=== PATIENT | female | born 2000 | race Caucasian/White ===

== ENCOUNTER 2025-06-03 21:26 | Emergency (ER) | payer OTHER, SELFPAY ==
[2025-06-03 21:30] VITALS: BP 108/68
[2025-06-03 21:48] LABS: Hematocrit 35.4 % (37.0-47.0); Hemoglobin 12.2 g/dL (12.0-16.0); Mean Corp Hgb Conc. 34.5 g/dL (33.0-37.0); Mean Corpuscular Volume 86.1 fL (81.0-99.0); Platelet Count 300 10^3/uL (130-400); Red Cell Dist. Width 12.6 % (11.5-14.5)
[2025-06-03 22:42] LABS: Beta HCG Quantitative 13121.00 mIU/ml
== END 2025-06-03 23:45 ==
LOC: EMR 21:26
PROVIDERS: Emergency Medicine
DX: O99.891 Other specified diseases and conditions complicating pregnancy (principal); R10.9 Unspecified abdominal pain; Z3A.12 12 weeks gestation of pregnancy
CPT/HCPCS: 76801; 84702; 85027; 86850; 86900; 86901

== ENCOUNTER 2025-09-30 09:04 | Emergency (ER) | payer OTHER, SELFPAY ==
--- NOTE | 2025-09-30 09:07 | ED.GENMED ---
History of Present Illness
General
Chief Complaint: Dehydration Symptoms
Time Seen by Provider: 09/30/25 09:07
History of Present Illness
History of Present Illness:
FOCUSED PAST MEDICAL HISTORY
- Seizures, POTS, Alecia-Danlos
REVIEW OF OLD RECORDS
- The patient is been seen here in the past and was diagnosed with COVID a couple years ago
Note:
CHIEF COMPLAINT(S)
Nausea, Headache, Seizure risk due to dehydration from Hyperemesis Gravidarum
HISTORY OF PRESENT ILLNESS
The patient is a 24-year-old female who is currently seven weeks and presents to the emergency department with nausea and headache. She has a history of hyperemesis gravidarum and epilepsy. The patient reports that she has not been able to
take her seizure medication, Vimpat (lacosamide), for several weeks due to nausea and vomiting, which increases her risk of seizures when dehydrated. She typically uses Klonopin (clonazepam) as a rescue medication for seizures.
The patient attended a custody hearing at a courthouse today and began feeling unwell, prompting her visit to the emergency department. She indicates that she attempted to manage her symptoms with Zofran (ondansetron) at home but prefers intravenous
administration as it has been more effective in the past.
The current episode of nausea and vomiting has led to dehydration, and she reports a significant headache. She denies current abdominal pain when asked if palpation of the abdomen causes discomfort.
PAST MEDICAL AND SURIGICAL HISTORY
History of epilepsy.
MEDICATIONS
Vimpat (lacosamide) - Unable to take for weeks due to nausea.
Klonopin (clonazepam) - Rescue medication for seizures.
Zofran (ondansetron) - Used for nausea, prefers IV administration.
PHYSICAL EXAM
General: Alert, appears upset and somewhat uncomfortable
Skin: Warm, dry.
Head: Normocephalic, atraumatic.
Neck: Supple, trachea midline.
Eye Ears, nose, mouth and throat: Oral mucosa moist.
Cardiovascular: Normal peripheral perfusion, No edema.
Respiratory: Respirations are non-labored.
Gastrointestinal: Abdomen nondistended. Minimal diffuse abdominal tenderness
Back: Normal range of motion, Normal alignment.
Musculoskeletal: Normal range of motion, normal strength.
Neurological: Alert and oriented to person, place, time, and situation, No focal neurological deficit observed.
Psychiatric: Cooperative, appropriate, appears upset
PLAN
1. Administer intravenous fluids to address dehydration and prevent seizure risk.
2. Administer intravenous Zofran (ondansetron) to manage nausea.
3. Obtain urine sample and blood work to evaluate dehydration and other potential issues.
4. Provide Tylenol (acetaminophen) for the patient�s headache if needed however patient initially declines.
DIFFERENTIAL DIAGNOSIS
The Differential Diagnosis includes, in no particular order and is not limited to:
1. Hyperemesis Gravidarum
2. Dehydration
3. Migraine
4. Tension Headache
5. Epileptic Seizures
6. Preeclampsia
7. Gastroenteritis
8. Medication Side Effect
9. Stress Induced Headache
10. Intracranial Hypertension
LABS
- Mild anemia noted at 10.1 (patient is ), otherwise labs relatively unremarkable
UPDATE
-SUMMARY OF ENCOUNTER
The patient, a 24-year-old female in her first trimester of , presented to the emergency department with nausea, headache, and dehydration due to hyperemesis gravidarum, with an increased risk of seizures from dehydration. Given her
condition and inability to keep oral medications down, she received intravenous fluids and intravenous ondansetron to manage symptoms. She is unable to return home via personal means and is seeking assistance for transportation.
DISPOSITION
Discharge.
PLAN
The patient will be discharged after receiving intravenous fluid rehydration and her symptoms are under better control. Arrangements for transportation, such as hospital-funded [employer] rides, may need to be considered.
MEDICATION RECONCILIATION
- Intravenous fluids administered.
- Ondansetron administered intravenously for nausea.
MEDICAL DECISION MAKING
-Complexity of Data Reviewed: Chronic conditions affecting care include hyperemesis gravidarum, epilepsy, dehydration.
-Data:
Category 1: Review of blood work, which showed no alarming features.
-Risk: Prescription medication was prescribed (Ondansetron administered intravenously). Care is affected by social determinants (lack of personal means for transportation).
DIAGNOSIS
- Nausea and vomiting of
- History of hyperemesis gravidarum
- Mild dehydration (E86.0)
- History of epilepsy, not intractable, without status epilepticus (G40.909)
Past History
Past History
ED Past Medical History: Asthma, Seizures (Epilepsy) and Other (POTS)
ED Past Surgical History: (X1)
Patient has exhibited threatening behavior?: No
PSI?: No
Social History
Tobacco: Non-smoker
Alcohol: None
Drug: Marijuana (Medical)
Personal: Single
Living: with family
Phy Exam
Physical Exam
Physical Exam:
See HPI
Course
Orders/Labs/Results
Orders:
Orders
09/30/25 09:14
0.9% Sodium Chloride 1000 ml [Nss] 1,000 ml IV BOLUS
Ondansetron Injectable [Zofran] 4 mg IV NOW STA
09/30/25 09:15
0.9% Sodium Chloride 1000 ml [Nss] 1,000 ml IV BOLUS
09/30/25 09:17
Lacosamide [Vimpat] 100 mg IV NOW STA
09/30/25 09:22
Complete Blood Count/With Diff Urgent
Comprehensive Metabolic Panel Urgent
09/30/25 10:46
Urinalysis Reflex To Culture Urgent
Date Specimen was Collected: 09/30/25
Time Specimen was Collected: 10:45
Abnormal Lab Results
09/30/25
09:22
RBC 4.13 L 10^6/uL
(4.20-5.40)
Hgb 10.1 L g/dL
(12.0-16.0)
Hct 30.9 L %
(37.0-47.0)
MCV 74.8 L fL
(81.0-99.0)
MCH 24.5 L pg
(27.0-31.0)
MCHC 32.7 L g/dL
(33.0-37.0)
RDW 16.1 H %
(11.5-14.5)
Sodium 134 L mmol/L
(135-145)
Glucose 102 H mg/dl
(70-99)
09/30/25 09:22
09/30/25 09:22
Vital Signs
Initial and Last Documented VS:
Initial Vital Signs
Temp Pulse Resp BP Pulse Ox
36.7 C 126 24 114/69 98
09/30/25 09:09 09/30/25 09:09 09/30/25 09:09 09/30/25 09:09 09/30/25 09:09
Last Documented Vital Signs
Temp Pulse Resp BP Pulse Ox
36.7 C 82 24 114/69 98
09/30/25 09:37 09/30/25 09:31 09/30/25 09:09 09/30/25 09:09 09/30/25 09:31
*Pulse Oximetry
Patient hypoxic: no
*Critical Care Note
Total Time (30-74mins, 75-104mins- exclusive of procedures): Not Applicable
ED Attending Note
-
Portions of this chart may have been created with voice recognition software.� Occasional wrong word or��sound alike� substitutions may have occurred due to the inherent limitations of voice recognition software.
Discharge Plan
Departure
Patient Disposition: Home (Routine Discharge)
Date of Disposition: 09/30/25
Time of Disposition: 10:51
Patient with high blood pressure during this ER visit?: No
Discharge Problem:
Nausea and vomiting during
Instructions: Hyperemesis Gravidarum (DC), Morning sickness - ED (DC)
Prescriptions:
No Action
ondansetron 4 MG tablet,disintegrating
4 mg PO TIDPRN PRN (Reason: nausea/vomiting) Qty: 12 0RF
Vimpat
1 tab PO . DIRECTED
Patient Comments:
' its been weeks because I keep throwing up'
Zyprexa
1 tab PO . DIRECTED
Patient Comments:
Its been weeks because I've been throwing up'
Referrals:
Martina Staples, DO [Family Provider, Family Practice]
Stand Alone Forms: Return to Work
Activity Restrictions/Additional Instructions:
We gave you a dose of Vimpat today. We also gave you Zofran and fluids. Your basic blood work is unremarkable. Return if worse or other concerns.
Interventions
Interventions:
*Risk Screen - Suicide Last Done: 09/30/25 09:35
*General Assessment Last Done: 09/30/25 09:31
*Neglect/Abuse Screening Last Done: 09/30/25 09:35
*ED- Fall Risk Assessment Last Done: 09/30/25 09:31
*ED COVID-19 Vaccine History Last Done: 09/30/25 09:31
*ED Influenza Vaccine History Last Done: 09/30/25 09:31
ED- Cardiac Assessment Last Done: 09/30/25 09:33
ED- Neurological Assessment Last Done: 09/30/25 09:33
ED- Pulmonary Assessment Last Done: 09/30/25 09:33
Discharge Date and Time
Print Language: GUAMANIAN
[2025-09-30 09:09] VITALS: BP 114/69
[2025-09-30] MEDS: NSS 1000 IV ×2 (09:21→10:27)
[2025-09-30] MEDS: ZOFRAN 4 MG IV (09:21)
[2025-09-30] MEDS: VIMPAT 100 MG IV (09:26)
[2025-09-30 09:31] VITALS: BMI 33.0
[2025-09-30 09:31] LABS: Hematocrit 30.9 % (37.0-47.0); Hemoglobin 10.1 g/dL (12.0-16.0); Mean Corp Hgb Conc. 32.7 g/dL (33.0-37.0); Mean Corpuscular Volume 74.8 fL (81.0-99.0); Nucleated Red Blood Cells % 0 %; Platelet Count 302 10^3/uL (130-400); Red Cell Dist. Width 16.1 % (11.5-14.5)
[2025-09-30 09:52] LABS: ALT (SGPT) 15 U/L (0-35); AST (SGOT) 18 U/L (14-36); Albumin 4.2 g/dl (3.5-5.0); Alkaline Phosphatase 52 U/L (38-126); Blood Urea Nitrogen 7 mg/dl (7-17); Calcium 9.4 mg/dl (8.4-10.2); Carbon Dioxide 22 mmol/L (22-30); Chloride 104 mmol/L (98-107); Estimated Creatinine Clearance > 125 ml/min; Glucose 102 mg/dl (70-99); Potassium 3.8 mmol/L (3.5-5.1); Sodium 134 mmol/L (135-145); Total Protein 7.0 g/dl (6.3-8.2); eGFR > 60.00
[2025-09-30 10:56] LABS: Urine Character Clear (Clear)
== END 2025-09-30 11:09 | disposition home or self-care (01) ==
LOC: EMR 09:04
PROVIDERS: EMERGENCY PHYSICIAN Emergency Medicine; FAMILY PHYSICIAN Student in an Organized Health Care Education/Training Program
DX: O21.9 Vomiting of pregnancy, unspecified (principal); Z3A.01 Less than 8 weeks gestation of pregnancy; O99.011 Anemia complicating pregnancy, first trimester; O99.281 Endocrine, nutritional and metabolic diseases complicating pregnancy, first trimester; E86.0 Dehydration; O99.351 Diseases of the nervous system complicating pregnancy, first trimester; G40.909 Epilepsy, unspecified, not intractable, without status epilepticus; G90.A Postural orthostatic tachycardia syndrome [POTS]; O99.511 Diseases of the respiratory system complicating pregnancy, first trimester; J45.909 Unspecified asthma, uncomplicated; O34.219 Maternal care for unspecified type scar from previous cesarean delivery; Z86.16 Personal history of COVID-19
CPT/HCPCS: 99284; 96374; 96375; 96361 ×2; 80053; 81003; 85025; C9254